=== PATIENT | male | born 1955 | race Caucasian/White ===

== ENCOUNTER 2016-07-02 07:30 | Inpatient (IN) | payer BC ==
[2016-07-03] MEDS ORDERED: Povidone-Iodine 10% Soln 118.25 ML Bottle ONE (06:37)
[2016-07-03] MEDS ORDERED: Thrombin (Bovine) 5,000 Unit Kit ONE (06:37)
[2016-07-03] MEDS ORDERED: Rocuronium 50 MG/5 ML Vial ONE ×2 (08:20→11:55)
[2016-07-03] MEDS ORDERED: Succinylcholine/Normal Saline 200 MG/10 ML Syringe ONE (08:20)
[2016-07-03] MEDS ORDERED: Propofol 200 MG/20 ML SDV ONE ×6 (08:20→14:41)
[2016-07-03] MEDS ORDERED: Dexamethasone 4 MG/ML SDV ONE (08:20)
[2016-07-03] MEDS ORDERED: Ondansetron 4 MG/2 ML SDV ONE (08:20)
[2016-07-03] MEDS ORDERED: fentaNYL 250 MCG/5 ML SDV ONE ×3 (08:21→13:55)
[2016-07-03] MEDS ORDERED: Lactated Ringers 1,000 ML IV SCH (08:30)
[2016-07-03] MEDS ORDERED: Neostigmine Methylsulfate 1 MG/ML 5 ML Syringe ONE (08:36)
[2016-07-03] MEDS ORDERED: ceFAZolin 2 GM in Sodium Chloride 0.9% 50 ML IV ONE (10:00)
[2016-07-03] MEDS: Tranexamic Acid 1,000 MG in Sodium Chloride 0.9% 50 ML IV SCH ×2 (11:25→16:07)
[2016-07-03] MEDS ORDERED: Lactated Ringers 1,000 ML ONE (12:23)
[2016-07-03] MEDS ORDERED: fentaNYL 100 MCG/2 ML SDV ONE (15:17)
[2016-07-03] MEDS ORDERED: Labetalol 20 MG/4 ML Syringe ONE (15:29)
[2016-07-03] MEDS ORDERED: Zolpidem 5 MG Tab PO PRN (15:54)
[2016-07-03] MEDS ORDERED: Ondansetron 4 MG/2 ML SDV IVPUSH PRN (15:54)
[2016-07-03] MEDS ORDERED: Naloxone 0.4 MG/ML SDV IVPUSH PRN (15:54)
[2016-07-03] MEDS ORDERED: Acetaminophen/oxyCODONE 325-5 MG Tab PO PRN (15:54)
[2016-07-03] MEDS ORDERED: Aluminum Hydroxide/Magnesium Hydroxide/Simethicone Susp 30 ML Cup PO PRN (15:54)
[2016-07-03] MEDS ORDERED: Magnesium Hydroxide 400 MG/5 ML Susp 30 ML Cup PO PRN (15:54)
[2016-07-03] MEDS ORDERED: Sodium Chloride 0.9% 10 ML Syringe FLUSH PRN (15:54)
[2016-07-03] MEDS ORDERED: ceFAZolin 2 GM in Sodium Chloride 0.9% 50 ML IV SCH (16:00)
[2016-07-03] MEDS ORDERED: fentaNYL 100 MCG/2 ML SDV IVPUSH ONE (16:04)
[2016-07-03] MEDS: HYDROmorphone 1 MG/ML Syringe IVPUSH PRN ×4 (16:20→22:36)
[2016-07-03] MEDS: Acetaminophen/Codeine 300-30 MG Tab PO PRN (19:51)
[2016-07-03] MEDS: ceFAZolin 2 GM in Sodium Chloride 0.9% 50 ML IV SCH (19:51)
[2016-07-03] MEDS: Gabapentin 300 MG Cap PO SCH (21:40)
[2016-07-03] MEDS: Zolpidem 5 MG Tab PO PRN (21:41)
[2016-07-03] MEDS: hydrOXYzine HCl 25 MG Tab PO PRN (23:37)
--- NOTE | 2016-07-03 23:59 | OR ---
DATE OF PROCEDURE: 07/03/2016 PREOPERATIVE DIAGNOSIS: Lumbar stenosis L2-L3 and L3-L4. POSTOPERATIVE DIAGNOSIS: Lumbar stenosis L2-L3 and L3-L4. PROCEDURE: 1. Transforaminal lumbar interbody fusion L2-L3 and L3-L4. 2. Place of interbody spacer at L2-3 and L3-4. 3. Laminectomy required in addition to preparation for interbody placement at L2-3 and L3- L4. 4. Use of allograft and autograft from laminectomy defect, segmental instrumentation L2- L4. HEALTH SPA MANAGER: Flor Griffin NP. ANESTHESIA: General endotracheal intubation. FLUID: Lactated Ringer solution. ESTIMATED BLOOD LOSS: 1200 mL. COMPLICATIONS: None. SPECIMEN: None. DISCHARGE DISPOSITION: Stable to PACU. HISTORY AND INDICATION FOR THE PROCEDURE: The patient was seen by myself in the clinic. He had failed extensive nonoperative treatment including physical therapy as well as epidural steroid injections and nonsteroidal anti-inflammatories and other medical management. Preoperative imaging confirmed the above-mentioned diagnosis. Risks and benefits of the procedure were explained to the patient. Informed consent was obtained. DETAILS OF PROCEDURE: The patient was seen by myself and the anesthesia staff in the preop holding area where the operative site was marked. He was brought to the operative suite by the anesthesia staff where general anesthesia was administered. Sterile Donovan catheter was placed. The fluoroscopy unit and operating microscope were draped in a sterile manner. Neuro monitoring leads were placed and normal at baseline, remained normal throughout the case. The patient was then placed into a Marshal table. All extremities found to be well padded. The patient was then prepped and draped in a sterile manner. Time-out was called identifying the correct patient, correct procedure, the correct site, and antibiotics had been with appropriate period of time. Fluoroscopy unit was then used to identify the L2 through L4 levels. A midline incision was made over the spinous processes of L1 to L4 and carried down over the spinous processes in respect to the lamina of L2 through L4 and over the facets and down to the transverse processes. Bleeding was controlled with Bovie electrocautery. Initial retraction was done with cerebellar retractors. An Aquamantys unit was used for additional hemostasis as well as FloSeal and thrombin-soaked Gelfoam. Two 75 mm blades were used for retraction using a Versa-Trac retractor down the level of the transverse processes. Great deal of time was used to expose the facets as well as the lateral aspect of the pars spinous processes and lamina of L2, L3, and L4. I started on the left placing screws. The manner in which this was done was by using a rongeur to remove the superior aspect of the overgrown facets and then drilled the facets down and then used a Pediguard to enter the pedicle, I started at L4 on the left. I then used a pedicle probe to make sure that there was no breach. We then tapped and then used a pedicle probe again and then placed our final screws. I used 6.5 x 50 mm Creo Amp screws. I completed the left side, took imaging and then completed the right side. After this was found to be in good position, I worked on my laminectomy. This was done by removing all the soft tissue first, then using rongeurs to remove the spinous processes and lamina of L3 and L4, and then the inferior lamina of L2. I also used Kerrison rongeurs to remove the facets on the left side as he was having more left-sided pain as well as a previous disc herniation on the left just medial to the L3 pedicle. I took a great deal of time doing this. There was quite a bit of blood loss secondary to epidural bleeders; however, these were controlled. The patient remained stable throughout the case. Also, note that all screws were tested over 20. I removed the ligamentum flavum and exposed the dura, I took great care in protecting the dura using cottonoids for hemostasis. We did use the Aquamantys unit as well as thrombin-soaked Gelfoam and FloSeal. I removed part of an old disc herniation on the posterior vertebral body of L3. I then focused on placing my interbodies. I started at L2-3 on the left by using the Aquamantys unit to expose the disc and protect the nerve using a nerve root retractor. I then incised using a 15 blade and then used kemal to sequentially open up the space from 7 mm to 11 mm. After this had been done, I then used straight upgoing and downgoing curettes to remove any extra disk that was removed with pituitary rongeurs. I then used a bone mill to mill up the bone dry from laminectomy and facetectomies and mix this with Signify Bioactive Crunch. I then used a bone final and tamped this anteriorly. I then inserted an implant which was a RISE 10 x 26, 10-17 mm implant and then expanded and under fluoroscopy. After this was complete, I applied some FloSeal to the intervertebral space and then applied a Ray-Tran for hemostasis. I completed this procedure again on the left at L3-4 using the exact same procedure. After this had been completed, I then placed my 275 mm titanium rods. After that, we copiously irrigated with 2 L of Betadine infused irrigation. I then decorticated the transverse processes on the right at L2, L3, and L4. Then placed our remaining autograft and allograft max for the posterior lateral fusion of those transverse processes on the right. I then applied some FloSeal to the lateral gutters as well as the epidural space and then with a wet Ray-Tran removed any excess after letting it sit for about 1 minute. After this had been accomplished, we then placed a drain going out of the wound, around the site of the wound and then closed with #2 Vicryl in an interlocking manner followed by #2 Vicryl in a running manner followed by deep subcutaneous sutures followed by subcutaneous 2-0 sutures followed by 2-0 Monocryl and Dermabond in a sterile dressing. The patient was then flipped back onto the hospital bed and allowed to awaken from general anesthesia and he was taken to the PACU in stable condition. Luis Olivera DO /[id number]
[2016-07-04] MEDS: HYDROmorphone 1 MG/ML Syringe IVPUSH PRN (01:36)
[2016-07-04] MEDS: Acetaminophen/Codeine 300-30 MG Tab PO PRN ×4 (03:28→21:40)
[2016-07-04] MEDS: ceFAZolin 2 GM in Sodium Chloride 0.9% 50 ML IV SCH ×2 (03:28→11:57)
[2016-07-04] MEDS: oxyCODONE 5 MG Tab PO PRN ×4 (05:39→20:21)
[2016-07-04] MEDS: hydrOXYzine HCl 25 MG Tab PO PRN ×2 (05:39→16:23)
[2016-07-04] MEDS: Gabapentin 300 MG Cap PO SCH ×3 (08:54→20:21)
[2016-07-04] MEDS: Citalopram 20 MG Tab PO SCH (08:54)
[2016-07-04] MEDS: Losartan 50 MG Tab PO SCH (08:54)
[2016-07-04] MEDS ORDERED: Non-Formulary Medication 1 Each (Losartan [Cozaar] 100 MG) PO SCH (09:00)
[2016-07-04] MEDS: Sennosides 8.6 MG Tab PO PRN ×2 (09:02→21:40)
--- NOTE | 2016-07-04 14:04 | PCM.PN ---
- General Info Date of Service: 07/04/16 Functional Status: Reports: pain controlled, tolerating diet, ambulating - Patient Data Vitals - most recent: Last Vital Signs Temp 37.6 C 07/04/16 10:55 Pulse 79 07/04/16 10:55 Resp 16 07/04/16 10:55 BP 106/73 07/04/16 10:55 Pulse Ox 92 L 07/04/16 12:44 Weight - most recent: 238 lb 14.4 oz I&O - last 24 hours: Intake & Output 07/03/16 07/04/16 07/04/16 22:59 06:59 14:59 Intake Total 55 1288 410 Output Total 415 1720 750 Balance -360 432 -207 Lab Results last 24 hrs: Laboratory Results - last 24 hr 07/04/16 07/04/16 Range/Units 05:00 05:00 WBC 9.4 (4.5-11.0) K/uL RBC 4.00 L (4.30-5.90) M/uL Hgb 12.4 D (12.0-15.0) g/dL Hct 36.5 L (40.0-54.0) % MCV 91 (80-98) fL MCH 31 (27-31) pg MCHC 34 (32-36) % Plt Count 231 (150-400) K/uL Neut % (Auto) 80 H (36-66) % Lymph % (Auto) 10 L (24-44) % [place] % (Auto) 9 H (2-6) % Eos % (Auto) 0 L (2-4) % Baso % (Auto) 0 (0-1) % Sodium 144 (140-148) mmol/L Potassium 4.4 (3.6-5.2) mmol/L Chloride 107 (100-108) mmol/L Carbon Dioxide 31 (21-32) mmol/L Anion Gap 6.5 (5.0-14.0) mmol/L BUN 13 (7-18) mg/dL Creatinine 0.9 (0.8-1.3) mg/dL Est Cr Clr Drug Dosing 88.70 mL/min Estimated GFR (MDRD) > 60 (>60) Glucose 136 H (74-106) mg/dL Calcium 8.2 L (8.5-10.1) mg/dL Med Orders - Current: Current Medications Acetaminophen/Codeine Phosphate (Tylenol With Codeine No.3 300mg/30mg) 1 tab PO Q4H PRN PRN Reason: Pain Last Admin: 07/04/16 08:51 Dose: 1 tab Al Hydroxide/Mg Hydroxide (Mag-Al Plus) 30 ml PO Q4H PRN PRN Reason: Indigestion Citalopram Hydrobromide (Celexa) 20 mg PO DAILY [facility] Last Admin: 07/04/16 08:54 Dose: 20 mg Diazepam (Valium) 5 mg IVPUSH Q6H PRN PRN Reason: Spasms Last Admin: 07/03/16 17:13 Dose: 5 mg Gabapentin (Neurontin) 300 mg PO TID [facility] Last Admin: 07/04/16 08:54 Dose: 300 mg Hydromorphone HCl (Dilaudid) 1 mg IVPUSH Q2H PRN PRN Reason: Pain Last Admin: 07/04/16 01:36 Dose: 1 mg Hydroxyzine HCl (Atarax) 50 mg PO QID PRN PRN Reason: Pain Last Admin: 07/04/16 05:39 Dose: 50 mg Losartan Potassium (Cozaar) 100 mg PO DAILY [facility] Last Admin: 07/04/16 08:54 Dose: 100 mg Magnesium Hydroxide (Milk Of Magnesia) 30 ml PO BID PRN PRN Reason: Constipation Ondansetron HCl (Zofran) 8 mg IVPUSH Q4H PRN PRN Reason: Nausea/Vomiting Oxycodone HCl (Oxycodone) 10 mg PO Q4H PRN PRN Reason: Pain Last Admin: 07/04/16 09:56 Dose: 10 mg Senna (Senna) 8.6 mg PO BID PRN PRN Reason: Constipation Last Admin: 07/04/16 09:02 Dose: 8.6 mg Sodium Chloride (Saline Flush) 10 ml FLUSH ASDIRECTED PRN PRN Reason: Keep Vein Open Zolpidem Tartrate (Ambien) 10 mg PO BEDTIME PRN PRN Reason: Sleep Last Admin: 07/03/16 21:41 Dose: 10 mg Discontinued Medications Dexamethasone (Dexamethasone) Confirm Administered Dose 4 mg .ROUTE .STK-MED ONE Stop: 07/03/16 08:21 Fentanyl (Sublimaze) Confirm Administered Dose 500 mcg .ROUTE .STK-MED ONE Stop: 07/03/16 08:22 Fentanyl (Sublimaze) Confirm Administered Dose 250 mcg .ROUTE .STK-MED ONE Stop: 07/03/16 11:44 Fentanyl (Sublimaze) Confirm Administered Dose 250 mcg .ROUTE .STK-MED ONE Stop: 07/03/16 13:56 Fentanyl (Sublimaze) Confirm Administered Dose 100 mcg .ROUTE .STK-MED ONE Stop: 07/03/16 15:18 Fentanyl (Sublimaze) 100 mcg IVPUSH ONETIME ONE Stop: 07/03/16 16:05 Last Admin: 07/03/16 16:13 Dose: 100 mcg Glycopyrrolate () Confirm Administered Dose 1 mg .ROUTE .STK-MED ONE Stop: 07/03/16 08:37 Lactated Ringer's (Ringers, Lactated) 1,000 mls @ 0 mls/hr IV ASDIRECTED [facility] PRN Reason: KVO Last Admin: 07/03/16 09:01 Dose: 25 mls/hr Cefazolin Sodium 2 gm/ Sodium (Chloride) 50 mls @ 100 mls/hr IV ONETIME ONE Stop: 07/03/16 10:29 Last Admin: 07/03/16 11:15 Dose: 100 mls/hr Tranexamic Acid 1,000 mg/ (Sodium Chloride) 60 mls @ 240 mls/hr IV Q3H [facility] Stop: 07/03/16 12:44 Last Admin: 07/03/16 16:07 Dose: 240 mls/hr Lactated Ringer's (Ringers, Lactated) Confirm Administered Dose 1,000 mls @ as directed .ROUTE .STK-MED ONE Stop: 07/03/16 12:24 Cefazolin Sodium 2 gm/ Sodium (Chloride) 50 mls @ 100 mls/hr IV Q8H [facility] Stop: 07/04/16 08:29 Last Admin: 07/03/16 23:25 Dose: Not Given Cefazolin Sodium 2 gm/ Sodium (Chloride) 50 mls @ 100 mls/hr IV Q8H [facility] Stop: 07/04/16 12:29 Last Admin: 07/04/16 11:57 Dose: 100 mls/hr Labetalol HCl (Normodyne) Confirm Administered Dose 20 mg .ROUTE .STK-MED ONE Stop: 07/03/16 15:30 Naloxone HCl (Narcan) 0.2 mg IVPUSH ONETIME PRN PRN Reason: Oversedation Stop: 07/03/16 15:55 Neostigmine Methylsulfate (Neostigmine) Confirm Administered Dose 5 mg .ROUTE .STK-MED ONE Stop: 07/03/16 08:37 Non-Formulary Medication (Losartan [Cozaar]) 100 mg PO DAILY [facility] Ondansetron HCl (Zofran) Confirm Administered Dose 4 mg .ROUTE .STK-MED ONE Stop: 07/03/16 08:21 Oxycodone/Acetaminophen (Percocet 325-5 Mg) 2 tab PO Q4H PRN PRN Reason: Pain Povidone Iodine (Betadine 10% Soln) Confirm Administered Dose 1 ml .ROUTE .STK- MED ONE Stop: 07/03/16 06:38 Last Admin: 07/03/16 11:58 Dose: 30 ml Propofol (Diprivan 20 Ml) Confirm Administered Dose 200 mg .ROUTE .STK-MED ONE Stop: 07/03/16 08:21 Propofol (Diprivan 20 Ml) Confirm Administered Dose 600 mg .ROUTE .STK-MED ONE Stop: 07/03/16 11:19 Propofol (Diprivan 20 Ml) Confirm Administered Dose 600 mg .ROUTE .STK-MED ONE Stop: 07/03/16 12:16 Propofol (Diprivan 20 Ml) Confirm Administered Dose 600 mg .ROUTE .STK-MED ONE Stop: 07/03/16 12:55 Propofol (Diprivan 20 Ml) Confirm Administered Dose 600 mg .ROUTE .STK-MED ONE Stop: 07/03/16 14:30 Propofol (Diprivan 20 Ml) Confirm Administered Dose 600 mg .ROUTE .STK-MED ONE Stop: 07/03/16 14:42 Rocuronium [place] (Zemuron) Confirm Administered Dose 50 mg .ROUTE .STK-MED ONE Stop: 07/03/16 08:21 Rocuronium [place] (Zemuron) Confirm Administered Dose 50 mg .ROUTE .STK-MED ONE Stop: 07/03/16 11:56 Succinylcholine Chloride (Succinylcholine In Ns Pf) Confirm Administered Dose 200 mg .ROUTE .STK-MED ONE Stop: 07/03/16 08:21 Thrombin (Thrombin-Jmi) Confirm Administered Dose 10,000 unit .ROUTE .STK-MED ONE Stop: 07/03/16 06:38 Last Admin: 07/03/16 11:58 Dose: 10,000 unit Zolpidem Tartrate (Ambien) 5 mg PO BEDTIME PRN PRN Reason: Sleep - Problem List & Annotations (1) Status post lumbar surgery SNOMED Code(s): 623959273, 119805774 Code(s): Z98.890 - OTHER SPECIFIED POSTPROCEDURAL STATES Status: Acute Current Visit: Yes Annotation/Comment:: L2-L4 TLIF (2) Spondylolisthesis, lumbar region SNOMED Code(s): 277920333 Code(s): M43.16 - SPONDYLOLISTHESIS, LUMBAR REGION Status: Chronic Current Visit: No - Problem List Review Problem List Initiated/Reviewed/Updated: Yes - My Orders Last 24 Hours: My Active Orders 07/03/16 15:54 Ambulate [RC] QID Bedrest Bathroom Privileges [RC] ASDIRECTED Head of Bed Elevation [RC] ASDIRECTED Intake and Output [RC] QSHIFT Notify Provider Intake and Out [RC] ASDIRECTED Notify Provider Laboratory Res [RC] ASDIRECTED Notify Provider Status Change [RC] ASDIRECTED Notify Provider Vital Signs [RC] ASDIRECTED Oxygen Therapy [RC] PRN RT Incentive Spirometry [RC] ASDIRECTED Turn, Cough, Deep Breathe [RC] .PRN Up to Chair [RC] QID Vital Signs [RC] Q4H Wound Care [RC] Q12H OT Evaluation and Treatment [CONS] Routine PT Evaluation and Treatment [CONS] Routine Alum Hydrox/Mag Hydrox/Simeth [Mag-Al Plus] 30 ml PO Q4H PRN Diazepam [Valium] 5 mg IVPUSH Q6H PRN HYDROmorphone [Dilaudid] 1 mg IVPUSH Q2H PRN Magnesium Hydroxide [Milk of Magnesia] 30 ml PO BID PRN Ondansetron [Zofran] 8 mg IVPUSH Q4H PRN Sennosides [Senna] 8.6 mg PO BID PRN Sodium Chloride 0.9% [Saline Flush] 10 ml FLUSH ASDIRECTED PRN Encourage Fluids [OM.PC] Routine Saline Lock Insert [OM.PC] Routine Sequential Compression Device [OM.PC] Routine Resuscitation Status Routine 07/03/16 16:00 Insert Urinary Catheter [OM.PC] ONETIME 07/03/16 Dinner Advance Diet Instructions [DIET] 07/04/16 09:00 Citalopram [Celexa] 20 mg PO DAILY Losartan [Cozaar] 100 mg PO DAILY 07/05/16 05:15 BASIC METABOLIC PANEL,BMP [CHEM] DAILY CBC WITH AUTO DIFF [HEME] DAILY 07/06/16 05:15 BASIC METABOLIC PANEL,BMP [CHEM] DAILY CBC WITH AUTO DIFF [HEME] DAILY 07/07/16 05:15 BASIC METABOLIC PANEL,BMP [CHEM] DAILY CBC WITH AUTO DIFF [HEME] DAILY - Plan Plan:: Ronald is a 60-year-old male who is status post lumbar fusion of L2-L4. He is doing very well. He did get up to the nurses station last evening and ambulate without any difficulties. He states his pain is under control. He denies any numbness or tingling in his lower extremities. He states otherwise he is doing very well. SPINE Musculoskeletal Physical Examination Constitutional: Vital signs including height and weight were reviewed and documented on the patient's chart. General appearance demonstrates normal development and body habitus. HEENT: Normocephalic, atraumatic. Neurological: The patient is alert and oriented to person, place, and time. Mood and affect are appropriate. Gait and station are normal. Intact sensation is noted. Deep tendon reflexes are equal. Clonus negative. [place]oto' s negative. Coordination and balance are normal. Neck: Inspection/palpation: Normal symmetry and appearance without tenderness. Range of motion: Full range of motion without pain. Stability: Stable through range of motion. Strength: Normal muscle strength and tone. Skin: Normal skin tone without rashes or lesions. Lumbar Spine: Inspection/palpation: Normal symmetry and appearance without tenderness. Range of motion: Full range of motion without pain. Stability: Stable through range of motion. Strength: Normal muscle strength and tone. Skin: Normal skin tone without rashes or lesions. Right lower extremity: Inspection/palpation: Normal symmetry and appearance without tenderness. Range of motion: Full range of motion without pain. Stability: Stable through range of motion. Strength: Normal muscle strength and tone. Skin: Normal skin tone without rashes or lesions. Left lower extremity: Inspection/palpation: Normal symmetry and appearance without tenderness. Range of motion: Full range of motion without pain. Stability: Stable through range of motion. Strength: Normal muscle strength and tone. Skin: Normal skin tone without rashes or lesions. plan: We will see him again in the morning. He is to continue with PT OT and pain management at this time. I want him to get up and ambulate at least 3 times a day. He will plan on being discharged tomorrow.
[2016-07-04] MEDS: Dexamethasone 4 MG/ML SDV IVPUSH SCH ×2 (18:18→22:39)
[2016-07-04] MEDS: Zolpidem 5 MG Tab PO PRN (21:40)
[2016-07-05] MEDS: oxyCODONE 5 MG Tab PO PRN ×3 (02:56→12:38)
[2016-07-05] MEDS: Dexamethasone 4 MG/ML SDV IVPUSH SCH (04:37)
[2016-07-05] MEDS: Gabapentin 300 MG Cap PO SCH (08:19)
[2016-07-05] MEDS: Citalopram 20 MG Tab PO SCH (08:19)
[2016-07-05] MEDS: Losartan 50 MG Tab PO SCH (08:20)
[2016-07-05] MEDS: Sennosides 8.6 MG Tab PO PRN (08:22)
[2016-07-05 11:28] VITALS: BP 120/79
--- NOTE | 2016-08-15 09:46 | PCM.DCSUM1 ---
Discharge Summary - Hospital Course Free Text/Narrative:: Ronald is a pleasant 60 year old male who is POD # 2 of a Ls-L4 lumbar fusion. He is doing well. He did ambulate without difficulites. His pain is under control with oral pain medication. He denies any numbness or tingling in his lower extremities. - Discharge Data Discharge Date: 07/05/16 Discharge Disposition: Home, Self-Care 01 Condition: Good - Discharge Diagnosis/Problem(s) (1) Status post lumbar surgery SNOMED Code(s): 831047308, [id number] ICD Code: Z98.890 - OTHER SPECIFIED POSTPROCEDURAL STATES Status: Acute Problem Details: L2-L4 TLIF (2) Spondylolisthesis, lumbar region SNOMED Code(s): 154652919340704 ICD Code: M43.16 - SPONDYLOLISTHESIS, LUMBAR REGION Status: Chronic - Patient Summary/Data Consults: Consultations 07/03/16 15:54 OT Evaluation and Treatment [CONS] Routine Please Evaluate and Treat. OT Reason for Consult: Strengthening This query below is only for informational purposes and is not editable. PT Evaluation and Treatment [CONS] Routine Please Evaluate and Treat. PT Reason for Consult: Strengthening This query below is only for informational purposes and is not editable. - Patient Instructions Diet: Usual Diet as Tolerated Activity: Apply Ice, As Tolerated, No Lifting Over 10 Pounds Driving: May Drive Today Showering/Bathing: May Shower Wound/Incision Care: Keep Operative Site/Wound Site Clean and Dry, Change Dressing Daily Notify Provider of: Fever, Increased Pain, Swelling and Redness - Discharge Plan Prescriptions/Med Rec: Acetaminophen/oxyCODONE [Percocet 325-5 MG] 1 - 2 each PO Q4HR PRN #120 tab PRN Reason: Pain Clindamycin HCl 600 mg PO ONETIME #6 capsule Diazepam [Valium] 5 mg PO BID #60 tablet hydrOXYzine Pamoate [Vistaril] 25 mg PO Q6H PRN #60 cap PRN Reason: Spasms Home Medications: Home Meds Citalopram Hydrobromide [Celexa] 20 mg PO DAILY 04/17/16 [History] Cyclobenzaprine [Flexeril] 10 mg PO TID PRN 04/17/16 [History] Ibuprofen 200 mg PO Q4H PRN 04/17/16 [History] Losartan [Cozaar] 100 mg PO DAILY 04/17/16 [History] Zolpidem Tartrate [Ambien] 10 mg PO BEDTIME PRN 04/17/16 [History] Gabapentin [Neurontin] 300 mg PO TID 05/10/16 [History] Acetaminophen/oxyCODONE [Percocet 325-5 MG] 1 - 2 each PO Q4HR PRN #120 tab [Rx] Clindamycin HCl 600 mg PO ONETIME #6 capsule 07/05/16 [Rx] Diazepam [Valium] 5 mg PO BID #60 tablet 07/05/16 [Rx] hydrOXYzine Pamoate [Vistaril] 25 mg PO Q6H PRN #60 cap 07/05/16 [Rx] Referrals: Luis Olivera DO [Physician] - (Patient is to follow up in 2 weeks in the clinic. ) - Discharge Summary/Plan Comment Discharge Summary/Plan Comment: Patient is to be discharged today to home. He is doing well. He will have home oral pain percocet and valium. We instructed his on how to drain the ELLI. He will go home with it at this time and will remove in 1 week. He is to follow up with ortho clinic in 1 month. He is to call sooner if he has any difficulties. - Patient Data Vitals - Most Recent: Last Vital Signs Temp 36.8 C 07/05/16 11:00 Pulse 93 07/05/16 11:00 Resp 18 07/05/16 11:00 BP 120/79 07/05/16 11:00 Pulse Ox 94 L 07/05/16 11:00 Weight - Most Recent: 238 lb 14.4 oz Med Orders - Current: Current Medications Discontinued Medications Acetaminophen/Codeine Phosphate (Tylenol With Codeine No.3 300mg/30mg) 1 tab PO Q4H PRN PRN Reason: Pain Last Admin: 07/04/16 21:40 Dose: 1 tab Al Hydroxide/Mg Hydroxide (Mag-Al Plus) 30 ml PO Q4H PRN PRN Reason: Indigestion Citalopram Hydrobromide (Celexa) 20 mg PO DAILY [facility] Last Admin: 07/05/16 08:19 Dose: 20 mg Dexamethasone (Dexamethasone) Confirm Administered Dose 4 mg .ROUTE .STK-MED ONE Stop: 07/03/16 08:21 Dexamethasone (Dexamethasone) 8 mg IVPUSH Q6H [facility] Stop: 07/05/16 05:01 Last Admin: 07/05/16 04:37 Dose: 8 mg Diazepam (Valium) 5 mg IVPUSH Q6H PRN PRN Reason: Spasms Last Admin: 07/03/16 17:13 Dose: 5 mg Fentanyl (Sublimaze) Confirm Administered Dose 500 mcg .ROUTE .STK-MED ONE Stop: 07/03/16 08:22 Fentanyl (Sublimaze) Confirm Administered Dose 250 mcg .ROUTE .STK-MED ONE Stop: 07/03/16 11:44 Fentanyl (Sublimaze) Confirm Administered Dose 250 mcg .ROUTE .STK-MED ONE Stop: 07/03/16 13:56 Fentanyl (Sublimaze) Confirm Administered Dose 100 mcg .ROUTE .STK-MED ONE Stop: 07/03/16 15:18 Fentanyl (Sublimaze) 100 mcg IVPUSH ONETIME ONE Stop: 07/03/16 16:05 Last Admin: 07/03/16 16:13 Dose: 100 mcg Gabapentin (Neurontin) 300 mg PO TID [facility] Last Admin: 07/05/16 08:19 Dose: 300 mg Glycopyrrolate () Confirm Administered Dose 1 mg .ROUTE .STK-MED ONE Stop: 07/03/16 08:37 Hydromorphone HCl (Dilaudid) 1 mg IVPUSH Q2H PRN PRN Reason: Pain Last Admin: 07/04/16 01:36 Dose: 1 mg Hydroxyzine HCl (Atarax) 50 mg PO QID PRN PRN Reason: Pain Last Admin: 07/04/16 16:23 Dose: 50 mg Lactated Ringer's (Ringers, Lactated) 1,000 mls @ 0 mls/hr IV ASDIRECTED [facility] PRN Reason: KVO Last Admin: 07/03/16 09:01 Dose: 25 mls/hr Cefazolin Sodium 2 gm/ Sodium (Chloride) 50 mls @ 100 mls/hr IV ONETIME ONE Stop: 07/03/16 10:29 Last Admin: 07/03/16 11:15 Dose: 100 mls/hr Tranexamic Acid 1,000 mg/ (Sodium Chloride) 60 mls @ 240 mls/hr IV Q3H [facility] Stop: 07/03/16 12:44 Last Admin: 07/03/16 16:07 Dose: 240 mls/hr Lactated Ringer's (Ringers, Lactated) Confirm Administered Dose 1,000 mls @ as directed .ROUTE .STK-MED ONE Stop: 07/03/16 12:24 Cefazolin Sodium 2 gm/ Sodium (Chloride) 50 mls @ 100 mls/hr IV Q8H [facility] Stop: 07/04/16 08:29 Last Admin: 07/03/16 23:25 Dose: Not Given Cefazolin Sodium 2 gm/ Sodium (Chloride) 50 mls @ 100 mls/hr IV Q8H [facility] Stop: 07/04/16 12:29 Last Admin: 07/04/16 11:57 Dose: 100 mls/hr Labetalol HCl (Normodyne) Confirm Administered Dose 20 mg .ROUTE .STK-MED ONE Stop: 07/03/16 15:30 Losartan Potassium (Cozaar) 100 mg PO DAILY [facility] Last Admin: 07/05/16 08:20 Dose: 100 mg Magnesium Hydroxide (Milk Of Magnesia) 30 ml PO BID PRN PRN Reason: Constipation Naloxone HCl (Narcan) 0.2 mg IVPUSH ONETIME PRN PRN Reason: Oversedation Stop: 07/03/16 15:55 Neostigmine Methylsulfate (Neostigmine) Confirm Administered Dose 5 mg .ROUTE .STK-MED ONE Stop: 07/03/16 08:37 Non-Formulary Medication (Losartan [Cozaar]) 100 mg PO DAILY [facility] Ondansetron HCl (Zofran) Confirm Administered Dose 4 mg .ROUTE .STK-MED ONE Stop: 07/03/16 08:21 Ondansetron HCl (Zofran) 8 mg IVPUSH Q4H PRN PRN Reason: Nausea/Vomiting Oxycodone HCl (Oxycodone) 10 mg PO Q4H PRN PRN Reason: Pain Last Admin: 07/05/16 12:38 Dose: 10 mg Oxycodone/Acetaminophen (Percocet 325-5 Mg) 2 tab PO Q4H PRN PRN Reason: Pain Povidone Iodine (Betadine 10% Soln) Confirm Administered Dose 1 ml .ROUTE .STK- MED ONE Stop: 07/03/16 06:38 Last Admin: 07/03/16 11:58 Dose: 30 ml Propofol (Diprivan 20 Ml) Confirm Administered Dose 200 mg .ROUTE .STK-MED ONE Stop: 07/03/16 08:21 Propofol (Diprivan 20 Ml) Confirm Administered Dose 600 mg .ROUTE .STK-MED ONE Stop: 07/03/16 11:19 Propofol (Diprivan 20 Ml) Confirm Administered Dose 600 mg .ROUTE .STK-MED ONE Stop: 07/03/16 12:16 Propofol (Diprivan 20 Ml) Confirm Administered Dose 600 mg .ROUTE .STK-MED ONE Stop: 07/03/16 12:55 Propofol (Diprivan 20 Ml) Confirm Administered Dose 600 mg .ROUTE .STK-MED ONE Stop: 07/03/16 14:30 Propofol (Diprivan 20 Ml) Confirm Administered Dose 600 mg .ROUTE .STK-MED ONE Stop: 07/03/16 14:42 Rocuronium [place] (Zemuron) Confirm Administered Dose 50 mg .ROUTE .STK-MED ONE Stop: 07/03/16 08:21 Rocuronium [place] (Zemuron) Confirm Administered Dose 50 mg .ROUTE .STK-MED ONE Stop: 07/03/16 11:56 Senna (Senna) 8.6 mg PO BID PRN PRN Reason: Constipation Last Admin: 07/05/16 08:22 Dose: 8.6 mg Sodium Chloride (Saline Flush) 10 ml FLUSH ASDIRECTED PRN PRN Reason: Keep Vein Open Succinylcholine Chloride (Succinylcholine In Ns Pf) Confirm Administered Dose 200 mg .ROUTE .STK-MED ONE Stop: 07/03/16 08:21 Thrombin (Thrombin-Jmi) Confirm Administered Dose 10,000 unit .ROUTE .STK-MED ONE Stop: 07/03/16 06:38 Last Admin: 07/03/16 11:58 Dose: 10,000 unit Zolpidem Tartrate (Ambien) 5 mg PO BEDTIME PRN PRN Reason: Sleep Zolpidem Tartrate (Ambien) 10 mg PO BEDTIME PRN PRN Reason: Sleep Last Admin: 07/04/16 21:40 Dose: 10 mg *Q Meaningful Use (DIS) - VTE *Q VTE Criteria *Q: - Stroke *Q Stroke Criteria *Q: - AMI *Q AMI Criteria *Q:
== END 2016-07-05 14:03 | disposition home or self-care (01) | DRG 304 ==
LOC: JP.SDS 07-03 07:57 → JP.SDSSCHI 07-03 07:57 → EDSTATUS 07-03 08:30 → JP.MS 07-03 16:40
PROVIDERS: ADMIT Orthopaedic Surgery; ATTEND Orthopaedic Surgery
PROC: 0SG1071 Fusion of 2 or more Lumbar Vertebral Joints with Autologous Tissue Substitute, Posterior Approach, Posterior Column, Open Approach (ICD-10-PCS; principal; 2016-07-03)
PROC: 0SG10A1 (ICD-10-PCS; principal; 2016-07-03)
DX: M48.06 Spinal stenosis, lumbar region (principal); I10 Essential (primary) hypertension; Z98.1 Arthrodesis status; G47.33 Obstructive sleep apnea (adult) (pediatric); F51.04 Psychophysiologic insomnia; F34.1 Dysthymic disorder; Z91.030 Bee allergy status
CPT/HCPCS: 36415; 76001; 80048; 85025; 86850; 86900; 86901; 94762; 97116-GP; 97161-GP; 97165-GO; 97530-GP; 97535-GP; A9270-GY; C1713; J0690; J1100; J1170; J2405; J2704; J3010; J3360; J7050; J7120

== ENCOUNTER 2017-02-04 07:30 | Inpatient (IN) | payer BC ==
[~2017-02-04 07:30] MED LIST: Gentamicin 40 MG/ML 2 ML Vial ONE; Midazolam 1 MG/ML 2 ML SDV ONE; Povidone-Iodine 10% Soln 118.25 ML Bottle ONE; Propofol 200 MG/20 ML SDV ONE; fentaNYL 100 MCG/2 ML SDV ONE
[2017-02-04] MEDS ORDERED: Gabapentin 300 MG Cap PO ONE (07:40)
[2017-02-04] MEDS ORDERED: Acetaminophen 500 MG Tab PO ONE (07:40)
[2017-02-04] MEDS ORDERED: Scopolamine 1.5 MG Transdermal Patch TOP SCH (07:40)
[2017-02-04] MEDS: Lactated Ringers 1,000 ML IV SCH ×2 (08:03→20:24)
[2017-02-04] MEDS ORDERED: ceFAZolin 1 GM in Premix Bag 1 BAG IV ONE (09:00)
[2017-02-04] MEDS ORDERED: Ketamine 500 MG/5 ML MDV IV SCH (09:00)
[2017-02-04] MEDS ORDERED: fentaNYL 250 MCG/5 ML SDV ONE ×2 (09:57→12:03)
[2017-02-04] MEDS ORDERED: Dexamethasone 4 MG/ML SDV ONE (09:59)
[2017-02-04] MEDS ORDERED: Rocuronium 50 MG/5 ML Vial ONE (09:59)
[2017-02-04] MEDS ORDERED: Glycopyrrolate 0.2 MG/ML 5 ML MDV ONE (09:59)
[2017-02-04] MEDS ORDERED: Ondansetron 4 MG/2 ML SDV ONE (09:59)
[2017-02-04] MEDS ORDERED: Succinylcholine 200 MG/10 ML MDV ONE (09:59)
[2017-02-04] MEDS ORDERED: Neostigmine Methylsulfate 1 MG/ML 5 ML Syringe ONE (09:59)
[2017-02-04] MEDS: Tranexamic Acid 1,000 MG in Sodium Chloride 0.9% 50 ML IV SCH ×2 (11:29→13:38)
[2017-02-04] MEDS ORDERED: ceFAZolin 2 GM in Sodium Chloride 0.9% 50 ML IV ONE (11:30)
[2017-02-04] MEDS ORDERED: Ketamine 500 MG/5 ML MDV ONE (12:42)
[2017-02-04] MEDS ORDERED: Bupivacaine 0.5%/EPINEPHrine 1:200,000 50 ML MDV ONE (12:46)
[2017-02-04] MEDS ORDERED: Ketorolac 60 MG/2 ML SDV ONE (12:46)
[2017-02-04] MEDS ORDERED: Lactated Ringers 1,000 ML ONE (13:12)
[2017-02-04] MEDS ORDERED: Morphine 2 MG/ML Syringe IVPUSH PRN (13:16)
[2017-02-04] MEDS ORDERED: Aluminum Hydroxide/Magnesium Hydroxide/Simethicone Susp 30 ML Cup PO PRN (13:16)
[2017-02-04] MEDS ORDERED: diphenhydrAMINE 50 MG/ML SDV IVPUSH PRN (13:16)
[2017-02-04] MEDS ORDERED: Sennosides 8.6 MG Tab PO PRN (13:16)
[2017-02-04] MEDS ORDERED: traMADol 50 MG Tab PO PRN (13:16)
[2017-02-04] MEDS ORDERED: Magnesium Hydroxide 400 MG/5 ML Susp 30 ML Cup PO PRN (13:16)
[2017-02-04] MEDS ORDERED: Naloxone 0.4 MG/ML SDV IVPUSH PRN (13:16)
[2017-02-04] MEDS ORDERED: Zolpidem 5 MG Tab PO PRN ×2 (13:16→13:27)
[2017-02-04] MEDS ORDERED: Acetaminophen 1,000 MG in Premix Bag 1 BAG IV ONE ×2 (13:16→16:00)
[2017-02-04] MEDS ORDERED: Ondansetron 4 MG/2 ML SDV IVPUSH PRN (13:16)
[2017-02-04] MEDS ORDERED: Bisacodyl 5 MG Tab PO PRN (13:16)
[2017-02-04] MEDS ORDERED: Ketorolac 30 MG/ML SDV IVPUSH PRN (13:16)
[2017-02-04] MEDS ORDERED: Non-Formulary Medication 1 Each (Zolpidem Tartrate [Ambien] 10 MG) PO PRN (13:18)
--- NOTE | 2017-02-04 13:27 | CR ---
Knee 1V or 2V Lt INDICATION: s/p left partial knee replacement FINDINGS: Postoperative changes medial compartment hemiarthroplasty. Negative for postoperative purpo ses.
[2017-02-04] MEDS ORDERED: fentaNYL 100 MCG/2 ML SDV IVPUSH ONE ×2 (13:30→14:05)
[2017-02-04] MEDS ORDERED: ceFAZolin 2 GM in Sodium Chloride 0.9% 50 ML IV SCH (13:30)
[2017-02-04] MEDS ORDERED: Diazepam 5 MG Tab PO PRN (13:34)
[2017-02-04] MEDS ORDERED: hydrOXYzine HCl 100 MG/2 ML SDV IM ONE (13:55)
[2017-02-04] MEDS: oxyCODONE 5 MG Tab PO PRN ×2 (15:37→19:38)
[2017-02-04] MEDS: SCOPOLAMINE PATCH PLACEMENT TOP SCH (16:15)
--- NOTE | 2017-02-04 18:08 | OR ---
DATE OF PROCEDURE: 02/04/2017 PREOPERATIVE DIAGNOSIS: Left knee primary osteoarthritis. POSTOPERATIVE DIAGNOSIS: Left knee primary osteoarthritis. PROCEDURE: Left knee medial unicompartmental knee arthroplasty. MANAGER DEMAND: Flor Griffin NP. Physician marketing support assistant, Flor Griffin NP, played an essential role in assisting in this case, helping to position the patient, retract structures as needed, as well as suturing and cutting sutures as indicated. Her presence improved patients safety and decreased operative time. ANESTHESIA: General endotracheal intubation. FLUID: Lactated Ringer solution. ESTIMATED BLOOD LOSS: 10 mL. COMPLICATIONS: None. SPECIMEN: None. DISCHARGE DISPOSITION: Stable to PACU. INDICATIONS FOR THE PROCEDURE: The patient was seen preoperatively by myself and the anesthesia staff in the clinic, he is well known to me. I have previously performed a lumbar fusion on him. He had failed nonoperative treatment. Preoperative imaging confirmed the above-mentioned diagnosis. Risks and benefits of the procedure were explained to the patient. Informed consent was obtained. DETAILS OF PROCEDURE: The patient was seen preoperatively by myself and anesthesia staff in the preop holding area, where the operative site was marked. He was brought to the operative suite by the anesthesia staff where general anesthesia was administered. A well- padded tourniquet was placed on the left thigh. His right lower extremity was placed into a stirrup. The left lower extremity was placed into a thigh cormier. The left lower extremity was then prepped and draped in sterile manner. Time-out was called identifying the correct patient, correct procedure, the correct site, and antibiotics had been begun at appropriate period of time. The left lower extremity was then exsanguinated, tourniquet raised to 300 mmHg for 53 minutes and let down after the cement had dried. Incision was made medial to the patella down to the medial aspect of the tibial tubercle and just above the patella proximally two fingerbreadths, carried down to the deep fascia. Bleeding during the case was controlled with Bovie electrocautery. A medial parapatellar arthrotomy was then made. Infrapatellar fat pad was removed. The medial meniscus was removed. An osteotome was used to remove osteophytes from the notch. Medial femoral guide was placed and found to have good contact. We then inserted our extramedullary tibial guide and connected it to our femoral bone. We then drilled this in place and then removed our guide hemalatha. I then made our vertical cut in line with the ASIS and then made our horizontal cut and then removed the proximal tibia, which measured a D. I then removed the remainder of the posterior medial meniscus. I then inserted a D tibial baseplate, which felt good. I then removed the base plate, drilled 1 cm anterior to the medial aspect of the femoral notch and then all this and then placed my intramedullary hemlaatha. I then inserted my femoral guide after marking the middle third of the condyle and then drilled the 2 holes for my femoral guide and then removed the femoral guide and then used my distal femoral cutting guide and then made my distal femoral cut. After this complete, I removed the guide and then placed femoral trial, my trial tibial plate, I was able to get 5 in flexion and barely able to get 1 in extension. Please note, I did this after placing an 0 spigot and doing a distal reaming. Therefore, I replaced the 0 spigot with a 5 spigot then reamed and then inserted my trials again. At this time, a 5 fit very nicely. I then placed my anterior femoral reamer guide on and then reamed the anterior cortex and then took out any posterior osteophytes of the posterior guide, then removed that femoral guide and placed my in tibial saw guide and pinned this in place and then used the saw and then removed any extra material and inserted the base plate. I inserted final femoral trial and then a 6 tibia insert. This provided excellent stability throughout range of motion. I then removed all of our components, copiously irrigated with saline and then placed my cement and cemented our components in place, and then very carefully removed any extra cement and then kept the knee in 30 degrees of extension with a #6 spacer. I allowed the cement to dry. I then let the tourniquet down, minimal bleeding was encountered. I then trialed with a 7 spacer, which provided great stability, so I irrigated again and inserted a final 7 spacer. I then injected with local anesthetic and then closed with #2 STRATAFIX, followed by 3-0 STRATAFIX, followed by skin trini, followed by sterile dressing. The patient was then transferred to his hospital bed and taken to PACU in stable condition. Luis Olivera DO /[id number]
[2017-02-04] MEDS ORDERED: Docusate Sodium 100 MG Cap PO SCH (21:00)
[2017-02-04] MEDS: ceFAZolin 2 GM in Sodium Chloride 0.9% 50 ML IV SCH (21:14)
[2017-02-04] MEDS: Docusate Sodium 100 MG Cap PO SCH (21:16)
[2017-02-05] MEDS: ceFAZolin 2 GM in Sodium Chloride 0.9% 50 ML IV SCH ×2 (02:07→09:34)
[2017-02-05] MEDS: oxyCODONE 5 MG Tab PO PRN ×2 (02:07→09:21)
[2017-02-05] MEDS ORDERED: Non-Formulary Medication 1 Each (Citalopram Hydrobromide [Celexa] 20 MG) PO SCH (09:00)
[2017-02-05] MEDS ORDERED: Sodium Chloride 0.9% 10 ML Syringe FLUSH PRN (09:00)
[2017-02-05] MEDS ORDERED: amLODIPine 5 MG Tab PO SCH ×2 (09:00)
[2017-02-05] MEDS ORDERED: Losartan 50 MG Tab PO SCH (09:00)
[2017-02-05] MEDS ORDERED: Non-Formulary Medication 1 Each (Losartan [Cozaar] 100 MG) PO SCH (09:00)
[2017-02-05] MEDS ORDERED: Citalopram 20 MG Tab PO SCH (09:00)
[2017-02-05] MEDS ORDERED: Hydrochlorothiazide 25 MG Tab PO SCH ×2 (09:00)
[2017-02-05] MEDS: Docusate Sodium 100 MG Cap PO SCH (09:22)
[2017-02-05] MEDS: SCOPOLAMINE PATCH PLACEMENT TOP SCH (09:23)
[2017-02-05 10:54] VITALS: BP 114/68
[2017-02-05] MEDS ORDERED: Aspirin 325 MG Tab.EC PO SCH ×2 (13:16)
[2017-02-05] MEDS ORDERED: Acetaminophen/oxyCODONE 325-5 MG Tab PO PRN (13:16)
--- NOTE | 2017-02-06 10:04 | PCM.DCSUM1 ---
Discharge Summary - Hospital Course Free Text/Narrative:: Ronald is status postop day 1 of a left partial knee replacement. He is doing very well. Patient is ablated without any difficulties. Pain is under control with oral pain medication. - Discharge Data Discharge Date: 02/05/17 Discharge Disposition: Home, Self-Care 01 Condition: Good - Patient Summary/Data Consults: Consultations 02/04/17 13:16 OT Evaluation and Treatment [CONS] Routine Please Evaluate and Treat. OT Reason for Consult: Strengthening This query below is only for informational purposes and is not editable. PT Evaluation and Treatment [CONS] Routine Please Evaluate and Treat. PT Reason for Consult: Strengthening This query below is only for informational purposes and is not editable. - Patient Instructions Diet: Usual Diet as Tolerated Activity: Apply Ice, As Tolerated Driving: Do Not Drive Showering/Bathing: May Shower, No Tub Bathing/Swimming Wound/Incision Care: Keep Operative Site/Wound Site Clean and Dry, Change Dressing Daily Notify Provider of: Fever, Increased Pain, Swelling and Redness, Drainage, Nausea and/or Vomiting - Discharge Plan Prescriptions/Med Rec: Acetaminophen/oxyCODONE [Percocet 325-5 MG] 1 - 2 tab PO Q6HR PRN #90 tablet PRN Reason: Pain Aspirin [Ecotrin] 325 mg PO DAILY #30 tab.ec Home Medications: Home Meds Citalopram Hydrobromide [Celexa] 20 mg PO DAILY 04/17/16 [History] Losartan [Cozaar] 100 mg PO DAILY 04/17/16 [History] Zolpidem Tartrate [Ambien] 10 mg PO BEDTIME PRN 04/17/16 [History] Hydrochlorothiazide 25 mg PO DAILY 01/20/17 [History] amLODIPine [Norvasc] 5 mg PO DAILY 01/31/17 [History] traMADol [Ultram] 50 mg PO TID PRN 01/31/17 [History] Acetaminophen/oxyCODONE [Percocet 325-5 MG] 1 - 2 tab PO Q6HR PRN #90 tablet [Rx] Aspirin [Ecotrin] 325 mg PO DAILY #30 tab.ec 02/05/17 [Rx] Other Amb Orders: PT Evaluation and Treatment [CONS] Location: Determined By Patient Referrals: Danny Singleton, PT [Physical Therapist] - Flor Griffin, ASSISTANT IN NURSING [Nurse Practitioner] - 02/24/17 10:45 am - Discharge Summary/Plan Comment DC Time >30 min.: Yes Discharge Summary/Plan Comment: Patient will DC home today with . I want him to continue with bowel regimen. He will start Percocet at home. I want him to take aspirin 325 one tablet daily. He'll follow up with orthopedic clinic in 3 weeks have trini removed. He will start PT postoperatively. He is to notify us if he has any other issues in the meantime. - Patient Data Vitals - Most Recent: Last Vital Signs Temp 37.1 C 02/05/17 10:51 Pulse 61 02/05/17 10:51 Resp 18 02/05/17 10:51 BP 114/68 02/05/17 10:51 Pulse Ox 93 L 02/05/17 10:51 Weight - Most Recent: 241 lb Med Orders - Current: Current Medications Discontinued Medications Acetaminophen (Tylenol Extra Strength) 1,000 mg PO ONETIME ONE Stop: 02/04/17 07:41 Last Admin: 02/04/17 08:00 Dose: 1,000 mg Al Hydroxide/Mg Hydroxide (Mag-Al Plus) 30 ml PO Q4H PRN PRN Reason: Constipation Amlodipine Besylate (Norvasc) 5 mg PO DAILY [facility] Amlodipine Besylate (Norvasc) 5 mg PO DAILY [facility] Last Admin: 02/05/17 09:23 Dose: 5 mg Aspirin (Ecotrin) 325 mg PO DAILY [facility] Aspirin (Ecotrin) 325 mg PO DAILY [facility] Bisacodyl (Dulcolax) 10 mg PO DAILY PRN PRN Reason: Constipation Bupivacaine HCl/Epinephrine Bitart (Marcaine 0.5%/Epinephrine 1:200,000) Confirm Administered Dose 50 ml .ROUTE .STK-MED ONE Stop: 02/04/17 12:47 Citalopram Hydrobromide (Celexa) 20 mg PO DAILY [facility] Last Admin: 02/05/17 09:22 Dose: 20 mg Dexamethasone (Dexamethasone) Confirm Administered Dose 4 mg .ROUTE .STK-MED ONE Stop: 02/04/17 10:00 Diazepam (Valium.) 5 mg PO Q6H PRN PRN Reason: Spasms Diphenhydramine HCl (Benadryl) 25 mg IVPUSH Q4H PRN PRN Reason: Itching Docusate Sodium (Colace) 100 mg PO BID [facility] Docusate Sodium (Colace) 100 mg PO BID [facility] Last Admin: 02/05/17 09:22 Dose: 100 mg Fentanyl (Sublimaze) Confirm Administered Dose 100 mcg .ROUTE .STK-MED ONE Stop: 02/04/17 07:25 Fentanyl (Sublimaze) Confirm Administered Dose 250 mcg .ROUTE .STK-MED ONE Stop: 02/04/17 09:58 Fentanyl (Sublimaze) Confirm Administered Dose 250 mcg .ROUTE .STK-MED ONE Stop: 02/04/17 12:04 Fentanyl (Sublimaze) 100 mcg IVPUSH ONETIME ONE Stop: 02/04/17 13:31 Last Admin: 02/04/17 13:34 Dose: 100 mcg Fentanyl (Sublimaze) 100 mcg IVPUSH ONETIME ONE Stop: 02/04/17 14:06 Last Admin: 02/04/17 14:14 Dose: 100 mcg Gabapentin (Neurontin) 300 mg PO ONETIME ONE Stop: 02/04/17 07:41 Last Admin: 02/04/17 08:00 Dose: 300 mg Gentamicin Sulfate (Gentamicin) Confirm Administered Dose 240 mg .ROUTE .STK- MED ONE Stop: 02/04/17 06:53 Last Admin: 02/04/17 12:14 Dose: 240 mg Glycopyrrolate (Robinul) Confirm Administered Dose 1 mg .ROUTE .STK-MED ONE Stop: 02/04/17 10:00 Hydrochlorothiazide (Hydrochlorothiazide) 25 mg PO DAILY [facility] Hydrochlorothiazide (Hydrochlorothiazide) 25 mg PO DAILY [facility] Last Admin: 02/05/17 09:22 Dose: 25 mg Hydroxyzine HCl (Vistaril) 100 mg IM ONETIME ONE Stop: 02/04/17 13:56 Last Admin: 02/04/17 13:51 Dose: 100 mg Lactated Ringer's (Ringers, Lactated) 1,000 mls @ 100 mls/hr IV ASDIRECTED [facility] Last Admin: 02/04/17 20:24 Dose: 100 mls/hr Tranexamic Acid 1,000 mg/ (Sodium Chloride) 60 mls @ 240 mls/hr IV Q2H [facility] Stop: 02/04/17 11:14 Last Admin: 02/04/17 13:38 Dose: 240 mls/hr Cefazolin Sodium 2 gm/ Sodium (Chloride) 50 mls @ 100 mls/hr IV ONETIME ONE Stop: 02/04/17 11:59 Last Admin: 02/04/17 11:28 Dose: 100 mls/hr Lactated Ringer's (Ringers, Lactated) Confirm Administered Dose 1,000 mls @ as directed .ROUTE .STK-MED ONE Stop: 02/04/17 13:13 Acetaminophen 1,000 mg/ Premix 100 mls @ 400 mls/hr IV NOW ONE Stop: 02/04/17 13:30 Last Admin: 02/04/17 16:16 Dose: Not Given Cefazolin Sodium 2 gm/ Sodium (Chloride) 50 mls @ 100 mls/hr IV Q8H [facility] Stop: 02/05/17 05:59 Last Admin: 02/04/17 16:16 Dose: Not Given Cefazolin Sodium 2 gm/ Sodium (Chloride) 50 mls @ 100 mls/hr IV Q8H [facility] Stop: 02/05/17 10:29 Last Admin: 02/05/17 09:34 Dose: 100 mls/hr Acetaminophen 1,000 mg/ Premix 100 mls @ 400 mls/hr IV NOW ONE Stop: 02/04/17 16:14 Last Admin: 02/04/17 16:38 Dose: 400 mls/hr Ketamine HCl (Ketalar) Confirm Administered Dose 500 mg .ROUTE .STK-MED ONE Stop: 02/04/17 12:43 Ketorolac Tromethamine (Toradol) Confirm Administered Dose 60 mg .ROUTE .STK- MED ONE Stop: 02/04/17 12:47 Ketorolac Tromethamine (Toradol) 30 mg IVPUSH Q8H PRN PRN Reason: Pain Stop: 02/09/17 13:16 Last Admin: 02/04/17 22:31 Dose: 30 mg Losartan Potassium (Cozaar) 100 mg PO DAILY [facility] Last Admin: 02/05/17 09:22 Dose: 100 mg Magnesium Hydroxide (Milk Of Magnesia) 30 ml PO BID PRN PRN Reason: Constipation Midazolam HCl (Versed 1 Mg/Ml) Confirm Administered Dose 2 mg .ROUTE .STK-MED ONE Stop: 02/04/17 07:25 Morphine Sulfate (Morphine) 2 mg IVPUSH Q2H PRN PRN Reason: Pain Last Admin: 02/04/17 19:29 Dose: 2 mg Naloxone HCl (Narcan) 0.1 mg IVPUSH ASDIRECTED PRN PRN Reason: Oversedation Stop: 02/04/17 23:00 Neostigmine Methylsulfate (Neostigmine) Confirm Administered Dose 5 mg .ROUTE .STK-MED ONE Stop: 02/04/17 10:00 Scopolamine Patch (Placement) 1 each TOP DAILY [facility] Stop: 02/07/17 12:01 Last Admin: 02/05/17 09:23 Dose: Not Given Non-Formulary Medication (Citalopram Hydrobromide [Celexa]) 20 mg PO DAILY [facility] Non-Formulary Medication (Losartan [Cozaar]) 100 mg PO DAILY [facility] Ondansetron HCl (Zofran) Confirm Administered Dose 4 mg .ROUTE .STK-MED ONE Stop: 02/04/17 10:00 Ondansetron HCl (Zofran) 8 mg IVPUSH Q4H PRN PRN Reason: Nausea/Vomiting Oxycodone HCl (Oxycodone) 10 mg PO Q4H PRN PRN Reason: Pain Stop: 02/05/17 13:16 Last Admin: 02/05/17 09:21 Dose: 10 mg Oxycodone/Acetaminophen (Percocet 325-5 Mg) 2 tab PO Q4H PRN PRN Reason: Pain Last Admin: 02/05/17 13:24 Dose: 2 tab Povidone Iodine (Betadine 10% Soln) Confirm Administered Dose 1 ml .ROUTE .STK- MED ONE Stop: 02/04/17 06:53 Last Admin: 02/04/17 12:15 Dose: 10 ml Propofol (Diprivan 20 Ml) Confirm Administered Dose 200 mg .ROUTE .STK-MED ONE Stop: 02/04/17 07:25 Rocuronium [place] (Zemuron) Confirm Administered Dose 50 mg .ROUTE .STK-MED ONE Stop: 02/04/17 10:00 Scopolamine (Transderm-Scop) 1.5 mg TOP Q72H [facility] Stop: 02/07/17 07:00 Last Admin: 02/04/17 08:01 Dose: 1.5 mg Senna (Senna) 8.6 mg PO BID PRN PRN Reason: Constipation Sodium Chloride (Saline Flush) 10 ml FLUSH ASDIRECTED PRN PRN Reason: LINE MAINTENCE Succinylcholine Chloride (Quelicin) Confirm Administered Dose 200 mg .ROUTE .STK -MED ONE Stop: 02/04/17 10:00 Tramadol HCl (Ultram) 100 mg PO Q6H PRN PRN Reason: Pain Zolpidem Tartrate (Ambien) 10 mg PO BEDTIME PRN PRN Reason: Insomnia Last Admin: 02/04/17 22:31 Dose: 10 mg - Exam General: Reports: Alert, Oriented Extremities: Normal Inspection, Normal Range of Motion, Normal Capillary Refill , Joint Swelling Skin: Reports: Warm, Dry, Intact Wound/Incisions: Reports: Healing Well, Dressing Dry and Intact Neurological: Reports: No New Focal Deficit Psy/Mental Status: Reports: Alert, Normal Affect *Q Meaningful Use (DIS) - VTE *Q VTE Criteria *Q: - Stroke *Q Stroke Criteria *Q: - AMI *Q AMI Criteria *Q:
== END 2017-02-05 14:54 | disposition home or self-care (01) | DRG 302 ==
LOC: EDSTATUS 07:30 → JP.SDS 07:32 → JP.MS 07:32
PROVIDERS: ADMIT Orthopaedic Surgery; ATTEND Orthopaedic Surgery
PROC: 0SRD0L9 Replacement of Left Knee Joint with Medial Unicondylar Synthetic Substitute, Cemented, Open Approach (ICD-10-PCS; principal; 2017-02-04)
DX: M17.12 Unilateral primary osteoarthritis, left knee (principal); I10 Essential (primary) hypertension; F51.04 Psychophysiologic insomnia; G47.33 Obstructive sleep apnea (adult) (pediatric); F34.1 Dysthymic disorder; Z79.82 Long term (current) use of aspirin; Z91.030 Bee allergy status
CPT/HCPCS: 36415; 73560-26-LT; 73560-LT; 80053; 85025; 86850; 86900; 86901; 97110-GP; 97161-GP; 97165-GO; 97530-GP; A9270-GY; C1713; C1776; J0131; J0330; J0690; J1100; J1580; J1885; J2250; J2270; J2405; J2704; J2710; J3010; J3410; J7050; J7120

== ENCOUNTER 2017-03-19 07:30 | Inpatient (IN) | payer BC ==
[~2017-03-19 07:30] MED LIST changes: -Midazolam 1 MG/ML 2 ML SDV ONE; -Povidone-Iodine 10% Soln 118.25 ML Bottle ONE; -Propofol 200 MG/20 ML SDV ONE; -fentaNYL 100 MCG/2 ML SDV ONE
[2017-03-19] MEDS ORDERED: Povidone-Iodine 10% Soln 118.25 ML Bottle ONE (07:57)
[2017-03-19] MEDS ORDERED: Acetaminophen 500 MG Tab PO ONE (08:15)
[2017-03-19] MEDS ORDERED: Scopolamine 1.5 MG Transdermal Patch TOP SCH (08:15)
[2017-03-19] MEDS: Gabapentin 300 MG Cap PO ONE ×2 (08:46→14:09)
[2017-03-19] MEDS: Lactated Ringers 1,000 ML IV SCH ×2 (08:46→13:29)
[2017-03-19] MEDS ORDERED: ceFAZolin 2 GM in Premix Bag 1 BAG IV ONE (09:30)
[2017-03-19] MEDS ORDERED: Ketamine 500 MG/5 ML MDV IV SCH (09:45)
[2017-03-19] MEDS ORDERED: Propofol 200 MG/20 ML SDV ONE (09:51)
[2017-03-19] MEDS ORDERED: Glycopyrrolate 0.2 MG/ML 5 ML MDV ONE (09:51)
[2017-03-19] MEDS ORDERED: Rocuronium 50 MG/5 ML Vial ONE (09:51)
[2017-03-19] MEDS ORDERED: Succinylcholine 200 MG/10 ML MDV ONE (09:51)
[2017-03-19] MEDS ORDERED: Ondansetron 4 MG/2 ML SDV ONE (09:51)
[2017-03-19] MEDS ORDERED: Neostigmine Methylsulfate 1 MG/ML 5 ML Syringe ONE (09:51)
[2017-03-19] MEDS ORDERED: Dexamethasone 4 MG/ML SDV ONE (09:51)
[2017-03-19] MEDS ORDERED: fentaNYL 250 MCG/5 ML SDV ONE (09:52)
[2017-03-19] MEDS ORDERED: Naloxone 0.4 MG/ML SDV ONE (10:08)
[2017-03-19] MEDS: Ropivacaine 49.25 ML, Ketorolac 30 MG, EPINEPHrine 0.5 MG, cloNIDine 80 MCG, Sodium Chl... INJECT ONE ×10 (11:07→11:30)
[2017-03-19] MEDS: Tranexamic Acid 3,000 MG, Sodium Chloride 0.9% 100 ML TOP SCH ×4 (11:07→14:09)
[2017-03-19] MEDS ORDERED: Zolpidem 5 MG Tab PO PRN (12:05)
[2017-03-19] MEDS ORDERED: Morphine 2 MG/ML Syringe IVPUSH PRN (12:05)
[2017-03-19] MEDS ORDERED: diphenhydrAMINE 50 MG/ML SDV IVPUSH PRN (12:05)
[2017-03-19] MEDS ORDERED: Magnesium Hydroxide 400 MG/5 ML Susp 30 ML Cup PO PRN (12:05)
[2017-03-19] MEDS ORDERED: Ondansetron 4 MG/2 ML SDV IVPUSH PRN (12:05)
[2017-03-19] MEDS ORDERED: Acetaminophen 1,000 MG in Premix Bag 1 BAG IV ONE (12:05)
[2017-03-19] MEDS ORDERED: Aluminum Hydroxide/Magnesium Hydroxide/Simethicone Susp 30 ML Cup PO PRN (12:05)
[2017-03-19] MEDS ORDERED: Ketorolac 30 MG/ML SDV IVPUSH PRN (12:05)
[2017-03-19] MEDS ORDERED: Naloxone 0.4 MG/ML SDV IVPUSH PRN (12:05)
[2017-03-19] MEDS ORDERED: Diazepam 5 MG Tab PO PRN (12:05)
[2017-03-19] MEDS ORDERED: traMADol 50 MG Tab PO PRN (12:05)
[2017-03-19] MEDS ORDERED: ceFAZolin 2 GM in Sodium Chloride 0.9% 50 ML IV SCH (12:15)
--- NOTE | 2017-03-19 12:26 | CR ---
Knee 1V or 2V Rt INDICATION: post op FINDINGS: Postoperative changes medial compartment hemiarthroplasty. Negative for postoperative purpo ses.
[2017-03-19] MEDS: fentaNYL 100 MCG/2 ML SDV IVPUSH ONE ×2 (12:31→12:50)
[2017-03-19] MEDS: oxyCODONE 5 MG Tab PO PRN ×2 (16:22→20:26)
[2017-03-19] MEDS: ceFAZolin 2 GM in Premix Bag 1 BAG IV SCH (18:51)
[2017-03-19] MEDS ORDERED: Docusate Sodium 100 MG Cap PO SCH (21:00)
[2017-03-19] MEDS ORDERED: Sennosides 8.6 MG Tab PO SCH (21:00)
[2017-03-19] MEDS: Docusate Sodium 100 MG Cap PO SCH (21:25)
[2017-03-19] MEDS: Sennosides 8.6 MG Tab PO SCH (21:26)
[2017-03-20] MEDS: oxyCODONE 5 MG Tab PO PRN ×3 (00:15→11:51)
[2017-03-20] MEDS: ceFAZolin 2 GM in Premix Bag 1 BAG IV SCH ×2 (02:54→10:28)
[2017-03-20] MEDS: Docusate Sodium 100 MG Cap PO SCH (08:28)
[2017-03-20] MEDS: Sennosides 8.6 MG Tab PO SCH (08:35)
[2017-03-20] MEDS ORDERED: amLODIPine 5 MG Tab PO SCH ×2 (09:00)
[2017-03-20] MEDS ORDERED: Hydrochlorothiazide 25 MG Tab PO SCH ×2 (09:00)
[2017-03-20] MEDS ORDERED: Losartan 50 MG Tab PO SCH (09:00)
[2017-03-20] MEDS ORDERED: Citalopram 20 MG Tab PO SCH (09:00)
[2017-03-20] MEDS ORDERED: Non-Formulary Medication 1 Each (Losartan [Cozaar] 100 MG) PO SCH (09:00)
[2017-03-20] MEDS ORDERED: Bisacodyl 5 MG Tab PO SCH ×2 (09:00)
[2017-03-20] MEDS ORDERED: Sodium Chloride 0.9% 10 ML Syringe FLUSH SCH (09:00)
[2017-03-20] MEDS ORDERED: Non-Formulary Medication 1 Each (Citalopram Hydrobromide [Celexa] 20 MG) PO SCH (09:00)
[2017-03-20 11:34] VITALS: BP 111/74
[2017-03-20] MEDS ORDERED: Acetaminophen/oxyCODONE 325-5 MG Tab PO PRN (12:05)
[2017-03-20] MEDS ORDERED: Aspirin 325 MG Tab.EC PO SCH ×2 (12:05)
--- NOTE | 2017-03-20 12:54 | PCM.DCSUM1 ---
Discharge Summary - Hospital Course Brief History: the patient is well-known to me. He is previously undergone aposterior lumbar interbody fusion as well as a left partial knee replacement. We performed a right partial knee replacement on 03/19/2017. He had failed nonoperative treatment. - Discharge Data Discharge Date: 03/20/17 Discharge Disposition: Home, Self-Care 01 Condition: Good - Patient Summary/Data Operative Procedure(s) Performed: right knee medial compartment arthroplasty Complications: none Consults: Consultations 03/19/17 12:05 OT Evaluation and Treatment [CONS] Routine Please Evaluate and Treat. OT Reason for Consult: Strengthening This query below is only for informational purposes and is not editable. PT Evaluation and Treatment [CONS] Routine Please Evaluate and Treat. PT Reason for Consult: Strengthening This query below is only for informational purposes and is not editable. - Patient Instructions Diet: Usual Diet as Tolerated Activity: As Tolerated, Full Weight Bearing Driving: Do Not Drive Showering/Bathing: May Shower Wound/Incision Care: Keep Operative Site/Wound Site Clean and Dry, Change Dressing Daily Notify Provider of: Fever, Increased Pain, Swelling and Redness, Drainage, Nausea and/or Vomiting - Discharge Plan Prescriptions/Med Rec: Acetaminophen/oxyCODONE [Percocet 325-5 MG] 1 tab PO Q6HR PRN #120 tablet PRN Reason: Pain Aspirin [Ecotrin] 325 mg PO DAILY #30 tab.ec Home Medications: Home Meds Citalopram Hydrobromide [Celexa] 20 mg PO DAILY 04/17/16 [History] Losartan [Cozaar] 100 mg PO DAILY 04/17/16 [History] Zolpidem Tartrate [Ambien] 10 mg PO BEDTIME PRN 04/17/16 [History] Hydrochlorothiazide 25 mg PO DAILY 01/20/17 [History] amLODIPine [Norvasc] 5 mg PO DAILY 01/31/17 [History] traMADol [Ultram] 50 mg PO TID PRN 01/31/17 [History] Acetaminophen/oxyCODONE [Percocet 325-5 MG] 1 - 2 tab PO Q6HR PRN #90 tablet [Rx] Acetaminophen/oxyCODONE [Percocet 325-5 MG] 1 tab PO Q6HR PRN #120 tablet [Rx] Aspirin [Ecotrin] 325 mg PO DAILY #30 tab.ec 03/20/17 [Rx] Referrals: Luis Olivera DO [Physician] - - General Info Functional Status: Reports: Pain Controlled - Review of Systems General: Reports: No Symptoms HEENT: Reports: No Symptoms Pulmonary: Reports: No Symptoms Cardiovascular: Reports: No Symptoms Gastrointestinal: Reports: No Symptoms Genitourinary: Reports: No Symptoms Musculoskeletal: Reports: Leg Pain, Joint Pain, Joint Swelling Skin: Reports: No Symptoms Neurological: Reports: No Symptoms Psychiatric: Reports: No Symptoms - Patient Data Vitals - Most Recent: Last Vital Signs Temp 98.1 F 03/20/17 11:33 Pulse 57 L 03/20/17 11:33 Resp 16 03/20/17 11:33 BP 111/74 03/20/17 11:33 Pulse Ox 91 L 03/20/17 11:33 Weight - Most Recent: 243 lb I&O - Last 24 hours: Intake & Output 03/19/17 03/20/17 03/20/17 22:59 06:59 14:59 Intake Total 1037 1549 1530 Output Total 225 425 700 Balance 812 1124 830 Lab Results - Last 24 hrs: Laboratory Results - last 24 hr 03/20/17 03/20/17 Range/Units 04:45 04:45 WBC 9.8 (4.5-11.0) K/uL RBC 4.25 L (4.30-5.90) M/uL Hgb 12.5 D (12.0-15.0) g/dL Hct 37.6 L (40.0-54.0) % MCV 89 (80-98) fL MCH 29 (27-31) pg MCHC 33 (32-36) % Plt Count 226 (150-400) K/uL Neut % (Auto) 75 H (36-66) % Lymph % (Auto) 18 L (24-44) % [place] % (Auto) 7 H (2-6) % Eos % (Auto) 0 L (2-4) % Baso % (Auto) 0 (0-1) % Sodium 141 (140-148) mmol/L Potassium 3.8 (3.6-5.2) mmol/L Chloride 103 (100-108) mmol/L Carbon Dioxide 31 (21-32) mmol/L Anion Gap 6.7 (5.0-14.0) mmol/L BUN 16 (7-18) mg/dL Creatinine 1.0 (0.8-1.3) mg/dL Est Cr Clr Drug Dosing 77.57 mL/min Estimated GFR (MDRD) > 60 (>60) Glucose 130 H (74-106) mg/dL Calcium 8.3 L (8.5-10.1) mg/dL Total Bilirubin 0.2 D (0.2-1.0) mg/dL AST 15 (15-37) U/L ALT 24 (12-78) U/L Alkaline Phosphatase 50 (46-116) U/L Total Protein 6.2 L (6.4-8.2) g/dL Albumin 3.1 L (3.4-5.0) g/dL Globulin 3.1 (2.3-3.5) g/dL Albumin/Globulin Ratio 1.0 L (1.2-2.2) Med Orders - Current: Current Medications Al Hydroxide/Mg Hydroxide (Mag-Al Plus) 30 ml PO Q4H PRN PRN Reason: Constipation Amlodipine Besylate (Norvasc) 5 mg PO DAILY [facility] Last Admin: 03/20/17 08:33 Dose: 5 mg Aspirin (Ecotrin) 325 mg PO DAILY [facility] Bisacodyl (Dulcolax) 10 mg PO DAILY [facility] Last Admin: 03/20/17 08:30 Dose: 10 mg Citalopram Hydrobromide (Celexa) 20 mg PO DAILY [facility] Last Admin: 03/20/17 08:28 Dose: 20 mg Diazepam (Valium.) 5 mg PO Q6H PRN PRN Reason: Spasms Diphenhydramine HCl (Benadryl) 25 mg IVPUSH Q4H PRN PRN Reason: Itching Docusate Sodium (Colace) 100 mg PO BID [facility] Last Admin: 03/20/17 08:28 Dose: 100 mg Hydrochlorothiazide (Hydrochlorothiazide) 25 mg PO DAILY [facility] Last Admin: 03/20/17 08:32 Dose: 25 mg Lactated Ringer's (Ringers, Lactated) 1,000 mls @ 100 mls/hr IV ASDIRECTED [facility] Last Admin: 03/19/17 13:29 Dose: 100 mls/hr Ketorolac Tromethamine (Toradol) 15 mg IVPUSH Q8H PRN PRN Reason: Pain Stop: 03/24/17 12:05 Last Admin: 03/19/17 14:05 Dose: 15 mg Losartan Potassium (Cozaar) 100 mg PO DAILY [facility] Last Admin: 03/20/17 08:29 Dose: 100 mg Magnesium Hydroxide (Milk Of Magnesia) 30 ml PO BID PRN PRN Reason: Constipation Morphine Sulfate (Morphine) 2 mg IVPUSH Q2H PRN PRN Reason: Pain Last Admin: 03/19/17 14:01 Dose: 2 mg Naloxone HCl (Narcan) 0.1 mg IVPUSH ONETIME PRN PRN Reason: Oversedation Ondansetron HCl (Zofran) 8 mg IVPUSH Q4H PRN PRN Reason: Nausea/Vomiting Oxycodone/Acetaminophen (Percocet 325-5 Mg) 2 tab PO Q4H PRN PRN Reason: Pain Scopolamine (Transderm-Scop) 1.5 mg TOP Q72H [facility] Stop: 03/22/17 08:00 Last Admin: 03/19/17 08:48 Dose: 1.5 mg Senna (Senna) 8.6 mg PO BID [facility] Last Admin: 03/20/17 08:35 Dose: 8.6 mg Sodium Chloride (Saline Flush) 10 ml FLUSH DAILY [facility] Last Admin: 03/20/17 08:34 Dose: Not Given Tramadol HCl (Ultram) 100 mg PO Q6H PRN PRN Reason: Pain Zolpidem Tartrate (Ambien) 5 mg PO BEDTIME PRN PRN Reason: Sleep Last Admin: 03/19/17 21:39 Dose: 5 mg Discontinued Medications Acetaminophen (Tylenol Extra Strength) 1,000 mg PO ONETIME ONE Stop: 03/19/17 08:16 Last Admin: 03/19/17 08:47 Dose: 1,000 mg Amlodipine Besylate (Norvasc) 5 mg PO DAILY [facility] Aspirin (Ecotrin) 325 mg PO DAILY [facility] Bisacodyl (Dulcolax) 10 mg PO DAILY [facility] Ropivacaine 49.25 ml/Ketorolac Tromethamine 30 mg/Epinephrine HCl 0.5 mg/ Clonidine HCl 80 mcg/ Sodium Chloride 48.45 ml 0 ml INJECT ONETIME ONE Stop: 03/19/17 09:46 Last Admin: 03/19/17 11:30 Dose: 100 ml Tranexamic Acid 3,000 mg/ (Sodium Chloride 100 ml) 0 mg TOP ASDIRECTED [facility] Stop: 03/19/17 09:46 Last Admin: 03/19/17 14:09 Dose: Not Given Dexamethasone (Dexamethasone) Confirm Administered Dose 4 mg .ROUTE .STK-MED ONE Stop: 03/19/17 09:52 Docusate Sodium (Colace) 100 mg PO BID [facility] Fentanyl (Sublimaze) Confirm Administered Dose 250 mcg .ROUTE .STK-MED ONE Stop: 03/19/17 09:53 Fentanyl (Sublimaze) 50 - 100 mcg IVPUSH ONETIME ONE Stop: 03/19/17 12:25 Last Admin: 03/19/17 12:50 Dose: 50 mcg Gabapentin (Neurontin) 300 mg PO ONETIME ONE Stop: 03/19/17 08:16 Last Admin: 03/19/17 14:09 Dose: Not Given Gentamicin Sulfate (Gentamicin) Confirm Administered Dose 240 mg .ROUTE .STK- MED ONE Stop: 03/19/17 07:20 Last Admin: 03/19/17 10:50 Dose: 240 mg Glycopyrrolate (Robinul) Confirm Administered Dose 1 mg .ROUTE .STK-MED ONE Stop: 03/19/17 09:52 Hydrochlorothiazide (Hydrochlorothiazide) 25 mg PO DAILY [facility] Cefazolin Sodium 2 gm/ Premix 20 mls @ 400 mls/hr IV ONETIME ONE Stop: 03/19/17 09:32 Last Admin: 03/19/17 10:12 Dose: 400 mls/hr Ketamine HCl 100 mg/ Sodium (Chloride) 100 mls @ 21 mls/hr IV ASDIRECTED [facility] PRN Reason: 5 MCG/KG/MIN Acetaminophen 1,000 mg/ Premix 100 mls @ 400 mls/hr IV ONETIME ONE Stop: 03/19/17 12:19 Last Admin: 03/19/17 12:15 Dose: 400 mls/hr Cefazolin Sodium 2 gm/ Sodium (Chloride) 50 mls @ 100 mls/hr IV Q8H [facility] Stop: 03/20/17 04:44 Last Admin: 03/19/17 14:55 Dose: Not Given Cefazolin Sodium/Dextrose 2 gm (/ Premix) 50 mls @ 100 mls/hr IV Q8H [facility] Stop: 03/20/17 10:29 Last Admin: 03/20/17 10:28 Dose: Not Given Ketamine HCl (Ketalar) 35 mg IV ASDIRECTED [facility] Naloxone HCl (Narcan) Confirm Administered Dose 0.4 mg .ROUTE .STK-MED ONE Stop: 03/19/17 10:09 Neostigmine Methylsulfate (Neostigmine) Confirm Administered Dose 5 mg .ROUTE .STK-MED ONE Stop: 03/19/17 09:52 Non-Formulary Medication (Citalopram Hydrobromide [Celexa]) 20 mg PO DAILY [facility] Non-Formulary Medication (Losartan [Cozaar]) 100 mg PO DAILY [facility] Ondansetron HCl (Zofran) Confirm Administered Dose 4 mg .ROUTE .STK-MED ONE Stop: 03/19/17 09:52 Oxycodone HCl (Oxycodone) 10 mg PO Q4H PRN PRN Reason: Pain Stop: 03/20/17 12:05 Last Admin: 03/20/17 11:51 Dose: 10 mg Povidone Iodine (Betadine 10% Soln) Confirm Administered Dose 1 ml .ROUTE .STK- MED ONE Stop: 03/19/17 07:58 Propofol (Diprivan 20 Ml) Confirm Administered Dose 200 mg .ROUTE .STK-MED ONE Stop: 03/19/17 09:52 Rocuronium [place] (Zemuron) Confirm Administered Dose 50 mg .ROUTE .STK-MED ONE Stop: 03/19/17 09:52 Senna (Senna) 8.6 mg PO BID [facility] Succinylcholine Chloride (Quelicin) Confirm Administered Dose 200 mg .ROUTE .STK -MED ONE Stop: 03/19/17 09:52 - Exam General: Reports: Alert, Oriented HEENT: Reports: Pupils Equal, Pupils Reactive, Mucous Membr. Moist/[place] Neck: Reports: Supple, Trachea Midline Lungs: Reports: Clear to Auscultation Extremities: No Pedal Edema, Normal Capillary Refill, Joint Swelling, Limited Range of Motion Skin: Reports: Warm, Dry, Intact Wound/Incisions: Reports: Healing Well, Dressing Dry and Intact, No Drainage Neurological: Reports: No New Focal Deficit Psy/Mental Status: Reports: Alert, Normal Affect, Normal Mood Discharge Operative/Procedures - Procedures Performed Operations: right knee medial compartment arthroplasty LP Indication: CSF analysis Arterial Line Indication: hemodynamic monitoring Chest Tube Indication: pneumothorax Thoracentesis Indication: pleural effusion Paracentesis Indication: ascites *Q Meaningful Use (DIS) - VTE *Q VTE Criteria *Q: - Stroke *Q Stroke Criteria *Q: - AMI *Q AMI Criteria *Q:
--- NOTE | 2017-03-31 20:29 | OR ---
DATE OF PROCEDURE: 03/20/2017 PREOPERATIVE DIAGNOSIS: Right knee primary osteoarthritis. POSTOPERATIVE DIAGNOSIS: Right knee primary osteoarthritis. PROCEDURE: Right knee medial compartmental arthroplasty. TRANSPORTATION MAINTENANCE OPERATOR: Flor Griffin NP. Physician assistant manager trainee, Flor Griffin NP, played an essential role in assisting in this case, helping to position the patient, retract structures as needed, as well as suturing and cutting sutures as indicated. Her presence improved patient's safety and decreased operative time. ANESTHESIA: General endotracheal intubation. FLUID: Lactated Ringer solution. ESTIMATED BLOOD LOSS: Less than 50 mL. COMPLICATIONS: None. SPECIMEN: None. DISCHARGE DISPOSITION: Stable to PACU. INSTRUMENTATION: [employer] knee size medium femur, size E tibia and 5 mm polyethylene. HISTORY AND INDICATIONS FOR THE PROCEDURE: The patient is well known to me. We previously performed a lumbar fusion on him as well as a left medial compartmental knee arthroplasty. Preoperative imaging confirmed the above-mentioned diagnosis. Risks and benefits of the procedure were explained to the patient. Informed consent was obtained. DETAILS OF THE PROCEDURE: The patient was seen preoperatively by myself and the anesthesia staff in the preoperative holding area where the operative site was marked. He was brought to the operative suite by the Anesthesia staff where general anesthesia was administered. A well-padded tourniquet was placed on the right thigh. The left lower extremity was placed into a stirrup. The right lower extremity was placed into a U shaped leg cormier, which was well padded. The right lower extremity was then prepped and draped in a sterile manner. Time-out was called identifying the correct patient, correct procedure, the correct site, and antibiotics had begun within an appropriate period of time. The right lower extremity was then exsanguinated. Tourniquet was raised to 300 mmHg and let down after cementing. An incision was made from medial aspect of the tibial tubercle to the medial aspect of the patella and then proximally approximately 2 fingerbreadths. Bleeding during the case was controlled with Bovie electrocautery. I then made a medial parapatellar arthrotomy and then using Bovie electrocautery, exposed the proximal medial tibia. I then removed the infrapatellar fat pad as well as partial synovectomy in the medial compartment and then removed as much of the medial meniscus as possible. I used a Gelpi for retraction. I then inserted a medium spoon which had a good fit. I then used my extramedullary tibial cutting guide and pinned this in position. I then made my proximal medial tibial cut first with the vertical cut with a reciprocating blade and then the horizontal cut with a flat saw blade and then removed en bloc, this measured an E. I then inserted 7 spacer which fit in nicely to ensure that we had resected enough. After this had been completed, I then removed my guide on the tibia and then drilled a hole 1 cm anterior to the medial border of the femoral notch and then all this and then placed an intramedullary guide hemalatha. I then used a marking pen to castillo the middle third of the femoral condyle and then I used the femoral guide and placed my anterior pin and then reamed a posterior hole on the distal femur. I then removed my guides and then put on my distal cutting guide for the femur and then made that cut. I then removed the guide and then placed my 0 Spigot and then while protecting the soft tissues reamed the distal femur. I then placed my femoral trial and tibial trial and this actually provided good clearance in both flexion and extension with a 4 spacer. At that point in time, I then removed my femoral guide and then placed on my posterior cutting guide for the femur and then used the osteotome to remove any posterior osteophytes. I then removed that guide and then placed on my tibial guide which we kept in position with a pin and then using the saw-toothed blade, I removed to the area for the tibial pin for the base plate. I then replaced all my components with the final trials and then inserted a 4 spacer which provided good stability. We then removed all of our components and then mixed our cement and then cemented all of our components in place after copiously irrigating with saline. We then held the knee in approximately 15 degrees of extension with a 5 poly for spacing. We allowed this to harden and let down the tourniquet. I then removed any excess cement and then inserted a 5 polyethylene trial which provided excellent stability and then inserted the final component. We then irrigated with saline, controlled any bleeding with Bovie electrocautery and then closed the incision with #2 3-0 STRATAFIX and skin trini followed by sterile dressing. The patient was allowed to awaken from general anesthesia and taken to the PACU in stable condition. Luis Olivera DO /[id number]
== END 2017-03-20 15:33 | disposition home or self-care (01) | DRG 302 ==
LOC: EDSTATUS 07:30 → JP.SDS 07:53 → JP.MS 07:53
PROVIDERS: ADMIT Orthopaedic Surgery; ATTEND Orthopaedic Surgery
PROC: 0SRC0L9 Replacement of Right Knee Joint with Medial Unicondylar Synthetic Substitute, Cemented, Open Approach (ICD-10-PCS; principal; 2017-03-19)
DX: M17.11 Unilateral primary osteoarthritis, right knee (principal); I10 Essential (primary) hypertension; M54.9 Dorsalgia, unspecified; G89.29 Other chronic pain; Z96.652 Presence of left artificial knee joint; H54.7 Unspecified visual loss; Z79.82 Long term (current) use of aspirin; Z91.030 Bee allergy status
CPT/HCPCS: 36415; 73560-26-RT; 73560-RT; 80053; 85025; 94762; 97110-GP; 97116-GP; 97161-GP; A9270-GY; C1713; C1776; J0131; J0171; J0330; J0690; J0735; J1100; J1580; J1885; J2270; J2310; J2405; J2704; J2710; J2795; J3010; J7030; J7050; J7120

== ENCOUNTER 2018-08-15 15:32 | Emergency (ER) | payer BC ==
[2018-08-15 16:04] VITALS: BP 125/79
--- NOTE | 2018-08-15 16:44 | EDM.PDOC ---
ED HPI GENERAL MEDICAL PROBLEM - General Chief Complaint: Lower Extremity Injury/Pain Stated Complaint: INFECTION ON INCISION ON RT KNEE Time Seen by Provider: 08/15/18 16:09 Source of Information: Reports: Patient History Limitations: Reports: No Limitations - History of Present Illness INITIAL COMMENTS - FREE TEXT/NARRATIVE: 62 yo male 6 weeks post right knee revision. yesterday noticed crusted SA at superior incision. He placed warm compress on area and had small amount of clear fluid drain. this afternoon he has more swelling in right knee. pain at baseline. generally feels well. - Related Data Allergies Allergy/AdvReac Type Severity Reaction Status Date / Time bee stings Allergy Other Uncoded 08/15/18 16:19 Home Meds: Home Meds RX: Losartan [Cozaar] 100 mg PO DAILY 04/17/16 [History] RX: Zolpidem Tartrate [Ambien] 10 mg PO BEDTIME PRN 04/17/16 [History] RX: amLODIPine [Norvasc] 5 mg PO DAILY 01/31/17 [History] RX: Aspirin [Ecotrin] 325 mg PO DAILY #30 tab.ec 03/20/17 [Rx] Hydrocodone/Acetaminophen [Hydrocodon-Acetaminophen 5-325] 08/15/18 [History] RX: Citalopram [Citalopram HBr] 08/15/18 [History] hydroCHLOROthiazide [Hydrochlorothiazide] 08/15/18 [History] Past Medical History HEENT History: Reports: Impaired Vision Other HEENT History: wears glasses Cardiovascular History: Reports: Hypertension, SOB on Exertion Respiratory History: Reports: Sleep Apnea Other Respiratory History: C-Pap Gastrointestinal History: Reports: None Genitourinary History: Reports: None Musculoskeletal History: Reports: Arthritis, Back Pain, Chronic, Other (See Below) Other Musculoskeletal History: s/p left partial knee. s/p R partial knee Neurological History: Reports: None Endocrine/Metabolic History: Reports: Obesity/BMI 30+ - Infectious Disease History Infectious Disease History: Reports: Chicken Pox - Past Surgical History HEENT Surgical History: Reports: None, Oral Surgery, Tonsillectomy Cardiovascular Surgical History: Reports: None Male Surgical History: Reports: Vasectomy Neurological Surgical History: Reports: Laminectomy, Spinal Fusion Social & Family History - Family History Cardiac: Reports: CAD Respiratory: Reports: COPD : Reports: Renal Disease/Insufficiency Musculoskeletal: Reports: Arthritis - Tobacco Use Smoking Status *Q: Never Smoker - Caffeine Use Caffeine Use: Reports: Coffee Review of Systems - Review of Systems Review Of Systems: See Below Constitutional: Denies: Chills, Fever Respiratory: Denies: Shortness of Breath, Wheezing Cardiovascular: Denies: Chest Pain Musculoskeletal: Reports: Joint Pain ED EXAM, GENERAL - Physical Exam Exam: See Below Exam Limited By: No Limitations General Appearance: Alert, WD/WN, No Apparent Distress Respiratory/Chest: No Respiratory Distress, Lungs Clear, Normal Breath Sounds, Chest Non-Tender. No: Crackles, Rhonchi, Wheezing Cardiovascular: Regular Rate, Rhythm, No Murmur, No Rub Extremities: Non-Tender, Joint Swelling (normal healing of all but superior 1 cm of incision. crusted. pink. normal temp. mild edema of knee) Course - Vital Signs Last Recorded V/S: Last Vital Signs Temp 36.8 C 08/15/18 16:26 Pulse 80 08/15/18 16:26 Resp 16 08/15/18 16:26 BP 125/79 08/15/18 16:26 Pulse Ox 94 L 08/15/18 16:26 - Orders/Labs/Meds Labs: Laboratory Tests 08/15/18 Range/Units 16:44 WBC 6.8 (4.5-11.0) K/uL RBC 4.62 (4.30-5.90) M/uL Hgb 13.5 (12.0-15.0) g/dL Hct 40.6 (40.0-54.0) % MCV 88 (80-98) fL MCH 29 (27-31) pg MCHC 33 (32-36) % Plt Count 291 (150-400) K/uL Neut % (Auto) 59 (36-66) % Lymph % (Auto) 30 (24-44) % [place] % (Auto) 8 H (2-6) % Eos % (Auto) 3 (2-4) % Baso % (Auto) 0 (0-1) % ESR 32 H (0-20) mm/hr Departure - Departure Time of Disposition: 17:43 Disposition: Home, Self-Care 01 Condition: Good Clinical Impression: Surgical wound, non healing Qualifiers: Encounter type: initial encounter Qualified Code(s): T81.89XA - Other complications of procedures, not elsewhere classified, initial encounter - Discharge Information *PRESCRIPTION DRUG MONITORING PROGRAM REVIEWED*: No *COPY OF PRESCRIPTION DRUG MONITORING REPORT IN PATIENT ERIK: No Referrals: Myron Wilson MD [Primary Care Provider] - Forms: ED Department Discharge Additional Instructions: ice are to reduce inflammation continue to observe if increase in pain, fire engine red or purulent drainage you need to be seen again
== END 2018-08-15 17:53 | disposition home or self-care (01) ==
LOC: JP.ED 15:32
DX: T81.89XA Other complications of procedures, not elsewhere classified, initial encounter (principal); I10 Essential (primary) hypertension; Z91.030 Bee allergy status; Z79.899 Other long term (current) drug therapy; Z79.82 Long term (current) use of aspirin; Z98.890 Other specified postprocedural states
CPT/HCPCS: 36415; 85025; 85651; 99283

== ENCOUNTER 2021-05-20 16:16 | Emergency (ER) | payer MEDICARE, BC ==
[2021-05-20 16:44] VITALS: BP 155/92; PULSE 79
== END 2021-05-20 17:20 | disposition home or self-care (01) ==
LOC: JP.ED 16:16
DX: S60.450A Superficial foreign body of right index finger, initial encounter (principal); I10 Essential (primary) hypertension; E66.9 Obesity, unspecified; Z91.030 Bee allergy status; Z79.899 Other long term (current) drug therapy; Z68.36 Body mass index [BMI] 36.0-36.9, adult; W45.8XXA Other foreign body or object entering through skin, initial encounter
CPT/HCPCS: 99282; 99283

== ENCOUNTER 2023-09-27 13:17 | Emergency (ER) | payer MEDICARE, BC ==
[2023-09-27 14:00] VITALS: BP 149/93; PULSE 85
[2023-09-27 14:07] LABS: BASOPHILS ABSOLUTE AUTO 0.04 K/uL (0.00-0.10); BASOPHILS PERCENT AUTO 0.5 % (0.1-1.3); EOSINOPHILS ABSOLUTE AUTO 0.27 K/uL (0.00-0.40); EOSINOPHILS PERCENT AUTO 3.6 % (0.0-5.4); HEMATOCRIT 42.3 % (38.4-49.7); HEMOGLOBIN 15.4 g/dL (12.9-16.9); IMMATURE GRAN ABSOLUTE AUTO 0.04 K/uL (0.00-0.23); IMMATURE GRAN PERCENT AUTO 0.5 % (0.0-0.7); LYMPHOCYTES ABSOLUTE AUTO 1.75 K/uL (0.8-3.3); LYMPHOCYTES PERCENT AUTO 23.3 % (11.4-47.7); MEAN CORPUSCULAR HEMOGLOBIN 30.9 pg (31.6-35.5); MEAN CORPUSCULAR HGB CONC 36.4 g/dL (31.6-35.5); MEAN CORPUSCULAR VOLUME 84.8 fL (81.4-99.0); NEUTROPHILS ABSOLUTE AUTO 4.81 K/uL (1.0-7.6); NEUTROPHILS PERCENT AUTO 64.1 % (40.0-78.1); PLATELET COUNT,PLT 193 K/uL (130-375); RED BLOOD CELL COUNT 4.99 M/uL (4.14-5.76); WHITE BLOOD CELL COUNT,WBC 7.5 K/uL (3.2-11.0)
[2023-09-27 14:23] LABS: APPEARANCE,URINE CLEAR (CLEAR); BILIRUBIN,URINE NEGATIVE (NEGATIVE); COLOR,URINE YELLOW (YELLOW); GLUCOSE,URINE NEGATIVE (NEGATIVE); KETONES,URINE NEGATIVE (NEGATIVE); LEUKOCYTE ESTERASE,URINE NEGATIVE (NEGATIVE); NITRITE,URINE NEGATIVE (NEGATIVE); OCCULT BLOOD,URINE TRACE-INTACT (NEGATIVE); PH,URINE 7.5 (5.0-8.0); PROTEIN,URINE 30 mg/dL (NEGATIVE); UROBILINOGEN,URINE 0.2 EU/dL (0.2-1.0)
[2023-09-27 14:32] LABS: AMORPHOUS SEDIMENT,URINE NOT SEEN; BACTERIA,URINE RARE; EPITHELIAL CELLS,URINE NOT SEEN; MUCUS,URINE NOT SEEN; RBC,URINE 0-5 (0-5); WBC,URINE 0-5 (0-5)
[2023-09-27 14:37] LABS: A/G RATIO 1.2 (1.2-2.2); ALANINE AMINOTRANSFERASE,ALT 28 U/L (12-78); ALBUMIN 4.1 g/dL (3.4-5.0); ALKALINE PHOSPHATASE 54 U/L (46-116); ANION GAP 12.7 mmol/L (5.0-14.0); ASPARTATE AMNIOTRANSFERASE,AST 20 U/L (15-37); BILIRUBIN TOTAL 0.4 mg/dL (0.2-1.0); BLOOD UREA NITROGEN,BUN 23 mg/dL (7-18); CALCIUM 9.3 mg/dL (8.5-10.1); CARBON DIOXIDE,CO2 28 mmol/L (21-32); CHLORIDE,CL 100 mmol/L (100-108); CREATININE 1.1 mg/dL (0.8-1.3); EST CRCL DRUG DOSING (CG) 65.17 mL/min; ESTIMATED GFR 74 mL/min (>60); GLUCOSE RANDOM 152 mg/dL (74-106); POTASSIUM,K 3.7 mmol/L (3.6-5.2); PRO B-TYPE NATRIUR PEPT,BNPPRO 31 pg/mL (5-125); PROTEIN TOTAL,TP 7.6 g/dL (6.4-8.2); SODIUM,NA 137 mmol/L (140-148)
== END 2023-09-27 16:15 | disposition home or self-care (01) ==
LOC: JP.ED 13:17
DX: R06.02 Shortness of breath (principal); I10 Essential (primary) hypertension; E66.9 Obesity, unspecified; Z79.899 Other long term (current) drug therapy; Z91.030 Bee allergy status; Z68.36 Body mass index [BMI] 36.0-36.9, adult
CPT/HCPCS: 36415; 70450; 71046; 71046-26; 80053; 81001; 83880; 84484; 85025; 85379; 93005; 99285